=== PATIENT | male | born 1955 | race Caucasian/White ===

== ENCOUNTER 2019-11-30 05:33 | Day surgery (SDC) | payer MEDICAID ==
[2019-11-26 11:00] VITALS: BMI 28.6
[~2019-11-30 05:33] MED LIST: HEPARIN SODIUM,PORCINE 5,000 UNIT/ML 1 ML VIAL SQ ONE
[2019-11-30] MEDS ORDERED: HYDROmorphone 0.5 MG/0.5 ML SYRINGE IVP PRN (05:46)
[2019-11-30] MEDS ORDERED: LIDOCAINE 1% 20 ML VIAL (10MG/ML) FOR IV START INTRADERMA PRN (05:46)
[2019-11-30] MEDS ORDERED: SCOPOLAMINE 1.5MG/72HR PATCH TRANSDERM ONE (05:46)
[2019-11-30] MEDS ORDERED: DEXAMETHASONE SOD PHOSPHATE 10 MG/ML 1 ML VIAL IV ONE (05:46)
[2019-11-30] MEDS ORDERED: ONDANSETRON 4 MG/2 ML VIAL IVP ONE (05:46)
[2019-11-30] MEDS: LACTATED RINGERS 1,000 ML IV SCH (06:22)
[2019-11-30] MEDS ORDERED: MIDAZOLAM 2 MG/2 ML VIAL IV ONE ×2 (07:22)
[2019-11-30] MEDS ORDERED: fentaNYL (PF) 50 MCG/ML 2 ML AMP IV ONE ×2 (07:35)
[2019-11-30] MEDS ORDERED: ROCURONIUM BROMIDE 10 MG/ML 5 ML VIAL IV ONE (07:49)
[2019-11-30] MEDS ORDERED: ROPIVACAINE 5 MG/ML 30 ML VIAL ONE (07:49)
[2019-11-30] MEDS ORDERED: DEXAMETHASONE SOD PHOSPHATE 4 MG/ML 1 ML VIAL ONE (07:49)
[2019-11-30] MEDS ORDERED: fentaNYL (PF) 50 MCG/ML 2 ML AMP ONE (07:49)
[2019-11-30] MEDS ORDERED: GLYCOPYRROLATE 0.2 MG/ML 2 ML VIAL ONE (07:49)
[2019-11-30] MEDS ORDERED: LIDOCAINE 1% INJ 10MG/ML (20 ML MDV) ONE (07:49)
[2019-11-30] MEDS ORDERED: LABETALOL 5 MG/ML VIAL MDV ONE (07:49)
[2019-11-30] MEDS ORDERED: NEOSTIGMINE 1 MG/ML 10 ML VIAL ONE (07:49)
[2019-11-30] MEDS ORDERED: PROPOFOL 10 MG/ML 20 ML VIAL IV ONE (07:49)
[2019-11-30] MEDS ORDERED: TAMSULOSIN 0.4 MG CAP.ER.24H PO ONE (07:53)
[2019-11-30] MEDS ORDERED: BUPIVACAINE (PF) 0.5% 30 ML VIAL SQ ONE ×2 (07:56→08:22)
--- NOTE | 2019-11-30 08:13 | P.GSHP ---
History of Present Illness H&P Date: 11/30/19 Chief Complaint: Right inguinal hernia This a 62-year-old male who presents today for laparoscopic robotic-assisted repair of right inguinal hernia Past Medical History Past Medical History: Prostate Disorder Additional Past Medical History / Comment(s): SEASONAL/ENVIRONMENTAL ALLERGIES. POSSIBLE GLAUCOMA. ED. KIDNEY STONES. HERNIA History of Any Multi-Drug Resistant Organisms: None Reported Past Surgical History: Hernia Repair Additional Past Surgical History / Comment(s): VARICOCELE LT TESTICLE. VASECTOMY. ORAL SX-18 TEETH REMOVED. HEMORRHOIDECTOMY. SIGMOIDOSCOPY Past Anesthesia/Blood Transfusion Reactions: No Reported Reaction Smoking Status: Former smoker - Past Family History Mother Family Medical History: No Reported History Medications and Allergies Home Medications Medication Instructions Recorded Confirmed Type Docusate [Colace] 100 mg PO BID 11/26/19 11/30/19 History Loratadine [Claritin] 10 mg PO DAILY 11/26/19 11/30/19 History Tamsulosin [Flomax] 0.4 mg PO DAILY 11/26/19 11/30/19 History Allergies Allergy/AdvReac Type Severity Reaction Status Date / Time amoxicillin Allergy N/V/D Verified 11/30/19 06:13 ITCHING, ABD. PAIN ampicillin Allergy N/V/D Verified 11/30/19 06:13 ITCHING, ABD. PAIN Penicillins Allergy N/V/D Verified 11/30/19 06:13 ITCHING, ABD. PAIN Yeast Allergy SINUS Verified 11/30/19 06:13 PROBLEMS MOLD, DUST, CUT GRASS Allergy SINUS Uncoded 11/30/19 06:13 PROBLEMS Surgical - Exam Vital Signs Temp Pulse Resp BP Pulse Ox 97.6 F 61 16 136/95 96 11/30/19 06:21 11/30/19 06:21 11/30/19 06:21 11/30/19 06:21 11/30/19 06:21 - General well developed, well nourished, no distress - Eyes PERRL - ENT normal pinna - Neck no masses - Respiratory normal expansion - Cardiovascular Rhythm: regular - Abdomen Abdomen: soft, non tender Hernia: inguinal (Right inguinal hernia) Assessment and Plan Assessment: Radial hernia. We'll perform laparoscopic robotic system repair.
[2019-11-30 09:05] VITALS: TEMP 96.8
--- NOTE | 2019-11-30 09:29 | P.OP ---
Date of Procedure: 11/30/19 Preoperative Diagnosis: Right inguinal hernia Postoperative Diagnosis: Right inguinal hernia Procedure(s) Performed: Laparoscopic robotic-assisted repair of right inguinal hernia Anesthesia: ARA Surgeon: Ricky Dallas Estimated Blood Loss (ml): 5 Pathology: none sent Condition: stable Disposition: PACU Description of Procedure: The patient's placed on the operating table in the supine position. The patient received general anesthesia. The patient's abdomen was prepped and draped in usual sterile fashion. The skin was anesthetized 1% local Xylocaine at the incision sites. Using an 11 blade a skin incision was made at the umbilicus. The fascia was grasped with a Antwan and then the peritoneal cavity was entered with the Veress needle. Position of the Veress needle was confirmed with a positive drop test. After adequate insufflation a 5 mm trocar was placed into the peritoneal cavity. The Laparoscope was placed the peritoneal cavity. And a robotic 8 mm trocar was placed in the right lateral position and then another 8 mm robotic trochars placed in the left lateral position. The original 5 mm trocar was exchanged for a 12 mm trocar. The patient was placed in reverse Trendelenburg and then the patient was docked to the robot. Next the peritoneum over top of the hernia was incised and then using blunt and sharp dissection and electrocautery the hernia sac was dissected free from the floor of the inguinal canal. The hernia sac was completely reduced into the peritoneal cavity. And then using the Pro career discovery teacher mesh the hernia was repaired. The peritoneum was then sutured with 20V lock suture. The patient was then undocked the robot. The needle was withdrawn from the peritoneal cavity. The umbilical trocar site was closed with 0 Ethibond suture. The skin was closed interrupted 3-0 Monocryl suture. Dermabond dressing was applied. Patient was sent to recovery in stable condition.
[2019-11-30 09:43] VITALS: RESP 16
[2019-11-30 10:10] VITALS: BP 165/92; PULSE 71
--- NOTE | 2019-11-30 10:51 | P.ANPRN ---
Procedure Note - Anesthesia - Nerve Block Performed Bilateral Transversus Abdominis Single Time Out Performed: Yes Date of Procedure: 11/30/19 Procedure Start Time: : Procedure Stop Time: : Location of Patient: PreOp Indication: Acute Post-Operative Pain, Requested by Surgeon Sedation Type: Sedate with meaningful contact maintained Preparation: Sterile Prep Position: Supine Catheter: None Needle Types: Pajunk Needle Gauge: 21 Ultrasound used to visualize needle placement: Yes Ultrasound used to observe medication spread: Yes Injectate: 0.5% Ropivacaine (see comment for volume) (ROPIVACAINE 0.5% 20 CC + DECADRON 4MG-- PER SIDE) Blood Aspirated: No Pain Paresthesia on Injection Noted: No Resistance on Injection: Normal Image Stored and Saved: Yes Events: Uneventful and Well Tolerated
== END 2019-11-30 10:47 | disposition home or self-care (01) ==
LOC: OR 05:33
PROVIDERS: ATTEND Surgery
DX: K40.90 Unilateral inguinal hernia, without obstruction or gangrene, not specified as recurrent (principal); N42.9 Disorder of prostate, unspecified; N52.9 Male erectile dysfunction, unspecified; Z79.899 Other long term (current) drug therapy; Z88.0 Allergy status to penicillin; Z88.8 Allergy status to other drugs, medicaments and biological substances; Z91.018 Allergy to other foods; Z87.442 Personal history of urinary calculi; Z98.890 Other specified postprocedural states; Z98.52 Vasectomy status; Z87.891 Personal history of nicotine dependence
CPT/HCPCS: 64488; 49650; C1781; J2250; J1644; J1100 ×2; J2710; J0690; J2405; J2001; J3010; J2795; J2704

== ENCOUNTER 2022-05-27 17:01 | Emergency (ER) | payer BC, MEDICAID ==
[2022-05-27 17:20] VITALS: BP 144/94; PULSE 99; RESP 18; TEMP 98.1
[2022-05-27 17:20] LABS: Glucose,Whole Blood 376 mg/dL (70-110)
[2022-05-27 19:55] LABS: Glucose,Whole Blood 292 mg/dL (70-110)
[2022-05-27 20:18] LABS: Basophils # (A) 0.1 k/uL (0-0.2); Basophils % (A) 1 %; Eosinophils # (A) 0.1 k/uL (0-0.7); Eosinophils % (A) 1 %; HCT 46.8 % (39.0-53.0); HGB 16.1 gm/dL (13.0-17.5); Lymphocytes # (A) 2.8 k/uL (1.0-4.8); Lymphocytes % (A) 38 %; MCH 30.8 pg (25.0-35.0); MCHC 34.3 g/dL (31.0-37.0); MCV 89.7 fL (80.0-100.0); Monocytes # (A) 0.3 k/uL (0-1.0); Monocytes % (A) 4 %; Neutrophils # (A) 4.1 k/uL (1.3-7.7); Neutrophils % (A) 55 %; Platelet Count 181 k/uL (150-450); RBC 5.22 m/uL (4.30-5.90); RDW 13.9 % (11.5-15.5); WBC 7.4 k/uL (3.8-10.6)
[2022-05-27 20:30] LABS: ALT 54 U/L (4-49); AST 44 U/L (17-59); African American GFR (CKD) 70 (>60 ml/min/1.73 sqM); Albumin 4.1 g/dL (3.5-5.0); Alkaline Phosphatase 85 U/L (38-126); Anion Gap 8 mmol/L; Blood Urea Nitrogen 22 mg/dL (9-20); Calcium 9.6 mg/dL (8.4-10.2); Carbon Dioxide 27 mmol/L (22-30); Chloride 100 mmol/L (98-107); Glucose 301 mg/dL (74-99); Magnesium 1.9 mg/dL (1.6-2.3); Non-African American GFR(CKD) 61 (>60 ml/min/1.73 sqM); Phosphorus 4.2 mg/dL (2.5-4.5); Potassium 4.5 mmol/L (3.5-5.1); Sodium 135 mmol/L (137-145); Total Bilirubin 0.7 mg/dL (0.2-1.3); Total Protein 7.5 g/dL (6.3-8.2)
[2022-05-27] MEDS ORDERED: INSULIN REGULAR 100 UNIT/ML VIAL (IV) IV ONE (20:30)
[2022-05-27] MEDS ORDERED: SODIUM CHLORIDE 0.9% 1,000 ML IV STA (20:30)
--- NOTE | 2022-05-27 20:49 | ED ---
Recheck HPI - General Chief Complaint: Recheck/Abnormal Lab/Rx Stated Complaint: hyperglycemia Time Seen by Provider: 05/27/22 18:29 Source: patient, RN notes reviewed Mode of arrival: ambulatory Limitations: no limitations - History of Present Illness Initial Comments: This is a 66-year-old male who presents to the emergency department for elevated blood sugar. Patient states that he was diagnosed with diabetes today and started on metformin. He was referred to urology for polyuria, and had his first appointment today. He was diagnosed with the diabetes at the urologist's office with a blood sugar of over 350 and sugar in the urine. Patient states that when he went to order picker his medication, his sugar was over 400. His became concerned, and instructed him to come to the emergency department. Patient currently denies any chest pain, shortness of breath, nausea, vomiting, or feeling generally unwell. Denies any fevers, chills, sore throat, cough, dyspnea, chest pain, palpitations, abdominal pain, nausea, vomiting, diarrhea, back pain, or headaches. MD Complaint: other (Elevated blood sugar) - Related Data Home Medications Medication Instructions Recorded Confirmed Loratadine [Claritin] 10 mg PO DAILY 11/26/19 05/27/22 Super Beta Prostate 3 cap PO DAILY 05/27/22 05/27/22 metFORMIN HCL 500 mg PO DAILY 05/27/22 05/27/22 tadalafiL 5 mg PO DIRECTED 05/27/22 05/27/22 Allergies Allergy/AdvReac Type Severity Reaction Status Date / Time amoxicillin Allergy N/V/D Verified 05/27/22 21:57 ITCHING, ABD. PAIN ampicillin Allergy N/V/D Verified 05/27/22 21:57 ITCHING, ABD. PAIN Penicillins Allergy N/V/D Verified 05/27/22 21:57 ITCHING, ABD. PAIN Yeast Allergy SINUS Verified 05/27/22 21:57 PROBLEMS MOLD, DUST, CUT GRASS Allergy SINUS Uncoded 11/30/19 06:13 PROBLEMS Review of Systems ROS Statement: Those systems with pertinent positive or pertinent negative responses have been documented in the HPI. ROS Other: All systems not noted in ROS Statement are negative. Past Medical History Past Medical History: Diabetes Mellitus, Prostate Disorder Additional Past Medical History / Comment(s): SEASONAL/ENVIRONMENTAL ALLERGIES. POSSIBLE GLAUCOMA. ED. KIDNEY STONES. HERNIA History of Any Multi-Drug Resistant Organisms: None Reported Past Surgical History: Hernia Repair Additional Past Surgical History / Comment(s): VARICOCELE LT TESTICLE. VASECTOMY. ORAL SX-18 TEETH REMOVED. HEMORRHOIDECTOMY. SIGMOIDOSCOPY Past Anesthesia/Blood Transfusion Reactions: No Reported Reaction Past Psychological History: No Psychological Hx Reported Past Alcohol Use History: None Reported Past Drug Use History: None Reported - Past Family History Mother Family Medical History: No Reported History General Exam Limitations: no limitations General appearance: alert, in no apparent distress Head exam: Present: atraumatic, normocephalic, normal inspection Respiratory exam: Present: normal lung sounds bilaterally. Absent: respiratory distress, wheezes, rales, rhonchi, stridor Cardiovascular Exam: Present: regular rate, normal rhythm, normal heart sounds. Absent: systolic murmur, diastolic murmur, rubs, gallop, clicks Neurological exam: Present: alert, oriented X3, CN II-XII intact Psychiatric exam: Present: normal affect, normal mood Skin exam: Present: warm, dry, intact, normal color. Absent: rash Course Vital Signs 05/27/22 17:11 Temperature 98.1 F Pulse Rate 99 Respiratory 18 Rate Blood Pressure 144/94 O2 Sat by Pulse 96 Oximetry Medical Decision Making - Medical Decision Making This is a 66-year-old male who presents to the emergency department for elevated blood sugar. Lab work reveals no signs of DKA. Patient started on IV fluids and given 5 units of insulin. Advised the patient that it will take time for his sugar to improve with the medication. He should continue taking the metformin as prescribed and discuss diabetic education classes with his primary care provider. I did provide the patient with contact information for diabetic education classes at [facility], however he will need a referral from his primary care provider. We discussed dietary changes and the need for lifestyle improvements. Patient expresses understanding. He does have a glucometer at home which he will continue to use. Return precautions reviewed in depth, the patient is instructed to return to the emergency department with any new, worsening, or concerning symptoms. Patient verbalized understanding. This case was discussed in detail with the attending ED physician. Presentation, findings, and treatment plan discussed in detail as well. - Lab Data Result diagrams: 05/27/22 20:05 05/27/22 20:05 Lab Results 05/27/22 05/27/22 05/27/22 Range/Units 17:19 19:52 20:05 WBC 7.4 (3.8-10.6) k/uL RBC 5.22 (4.30-5.90) m/uL Hgb 16.1 (13.0-17.5) gm/dL Hct 46.8 (39.0-53.0) % MCV 89.7 (80.0-100.0) fL MCH 30.8 (25.0-35.0) pg MCHC 34.3 (31.0-37.0) g/dL RDW 13.9 (11.5-15.5) % Plt Count 181 (150-450) k/uL MPV 8.0 Neutrophils % 55 % Lymphocytes % 38 % Monocytes % 4 % Eosinophils % 1 % Basophils % 1 % Neutrophils # 4.1 (1.3-7.7) k/uL Lymphocytes # 2.8 (1.0-4.8) k/uL Monocytes # 0.3 (0-1.0) k/uL Eosinophils # 0.1 (0-0.7) k/uL Basophils # 0.1 (0-0.2) k/uL Sodium (137-145) mmol/L Potassium (3.5-5.1) mmol/L Chloride (98-107) mmol/L Carbon Dioxide (22-30) mmol/L Anion Gap mmol/L BUN (9-20) mg/dL Creatinine (0.66-1.25) mg/dL Est GFR (CKD-EPI)AfAm (>60 ml/min/1.73 sqM) Est GFR (CKD-EPI)NonAf (>60 ml/min/1.73 sqM) Glucose (74-99) mg/dL POC Glucose (mg/dL) 376 H 292 H (70-110) mg/dL POC Glu Shredding Machine Knife Changer ID Jayne Cline Heather Calcium (8.4-10.2) mg/dL Phosphorus (2.5-4.5) mg/dL Magnesium (1.6-2.3) mg/dL Total Bilirubin (0.2-1.3) mg/dL AST (17-59) U/L ALT (4-49) U/L Alkaline Phosphatase (38-126) U/L Total Protein (6.3-8.2) g/dL Albumin (3.5-5.0) g/dL Urine Color Urine Appearance (Clear) Urine pH (5.0-8.0) Ur Specific Peterson (1.001-1.035) Urine Protein (Negative) Urine Glucose (UA) (Negative) Urine Ketones (Negative) Urine Blood (Negative) Urine Nitrite (Negative) Urine Bilirubin (Negative) Urine Urobilinogen (<2.0) mg/dL Ur Leukocyte Esterase (Negative) Acetone, Qual (Negative) 05/27/22 05/27/22 05/27/22 Range/Units 20:05 21:25 23:14 WBC (3.8-10.6) k/uL RBC (4.30-5.90) m/uL Hgb (13.0-17.5) gm/dL Hct (39.0-53.0) % MCV (80.0-100.0) fL MCH (25.0-35.0) pg MCHC (31.0-37.0) g/dL RDW (11.5-15.5) % Plt Count (150-450) k/uL MPV Neutrophils % % Lymphocytes % % Monocytes % % Eosinophils % % Basophils % % Neutrophils # (1.3-7.7) k/uL Lymphocytes # (1.0-4.8) k/uL Monocytes # (0-1.0) k/uL Eosinophils # (0-0.7) k/uL Basophils # (0-0.2) k/uL Sodium 135 L (137-145) mmol/L Potassium 4.5 (3.5-5.1) mmol/L Chloride 100 (98-107) mmol/L Carbon Dioxide 27 (22-30) mmol/L Anion Gap 8 mmol/L BUN 22 H (9-20) mg/dL Creatinine 1.25 (0.66-1.25) mg/dL Est GFR (CKD-EPI)AfAm 70 (>60 ml/min/1.73 sqM) Est GFR (CKD-EPI)NonAf 61 (>60 ml/min/1.73 sqM) Glucose 301 H (74-99) mg/dL POC Glucose (mg/dL) 223 H (70-110) mg/dL POC Glu Shredding Machine Knife Changer ID Sariah, Khloe Calcium 9.6 (8.4-10.2) mg/dL Phosphorus 4.2 (2.5-4.5) mg/dL Magnesium 1.9 (1.6-2.3) mg/dL Total Bilirubin 0.7 (0.2-1.3) mg/dL AST 44 (17-59) U/L ALT 54 H (4-49) U/L Alkaline Phosphatase 85 (38-126) U/L Total Protein 7.5 (6.3-8.2) g/dL Albumin 4.1 (3.5-5.0) g/dL Urine Color Light Yellow Urine Appearance Clear (Clear) Urine pH 5.0 (5.0-8.0) Ur Specific Peterson 1.030 (1.001-1.035) Urine Protein Negative (Negative) Urine Glucose (UA) 4+ H (Negative) Urine Ketones 1+ H (Negative) Urine Blood Negative (Negative) Urine Nitrite Negative (Negative) Urine Bilirubin Negative (Negative) Urine Urobilinogen <2.0 (<2.0) mg/dL Ur Leukocyte Esterase Negative (Negative) Acetone, Qual Negative (Negative) Disposition Clinical Impression: Hyperglycemia due to type 2 diabetes mellitus Disposition: HOME SELF-CARE Instructions (If sedation given, give patient instructions): Type 2 Diabetes in Adults: New Diagnosis (DC), Type 2 Diabetes Management for Adults (ED) Additional Instructions: Return to the emergency department with any new, worsening, or concerning symptoms. Continue taking your Metformin as prescribed. Follow up with your primary care provider in 1-2 days. Is patient prescribed a controlled substance at d/c from ED?: No Referrals: Jenna Lombardo MD [Primary Care Provider] - 1-2 days
[2022-05-27 21:59] LABS: Appearance,Urine Clear (Clear); Bilirubin,Urine Negative (Negative); Blood,Urine Negative (Negative); Color,Urine Light Yellow; Glucose,Urine (UA) 4+ (Negative); Ketones,Urine 1+ (Negative); Leukocyte Esterase,Urine Negative (Negative); Nitrite,Urine Negative (Negative); Protein,Urine Negative (Negative); Urobilinogen,Urine <2.0 mg/dL (<2.0)
[2022-05-27 23:16] LABS: Glucose,Whole Blood 223 mg/dL (70-110)
== END 2022-05-27 22:59 | disposition home or self-care (01) ==
LOC: EC 17:01
DX: E11.65 Type 2 diabetes mellitus with hyperglycemia (principal); Z79.4 Long term (current) use of insulin; Z88.0 Allergy status to penicillin; Z91.018 Allergy to other foods; Z91.048 Other nonmedicinal substance allergy status
CPT/HCPCS: 36415; 80053; 81003; 82009; 83735; 84100; 85025; 99284

== ENCOUNTER 2022-08-27 10:35 | Emergency (ER) | payer BC ==
[2022-08-27 10:50] VITALS: RESP 18; TEMP 98.3
[2022-08-27] MEDS ORDERED: SODIUM CHLORIDE 0.9% 500 ML 500 ML IV STA (10:58)
[2022-08-27 11:11] LABS: Glucose,Whole Blood 170 mg/dL (70-110)
[2022-08-27 11:28] LABS: Lactic Acid, Venous 1.3 mmol/L (0.7-2.0); Partial Thromboplastin Time 22.8 sec (22.0-30.0); Prothrombin Time 11.1 sec (9.0-12.0)
[2022-08-27 11:29] LABS: Albumin 4.3 g/dL (3.5-5.0); Calcium 8.5 mg/dL (8.4-10.2); Potassium 4.2 mmol/L (3.5-5.1); Total Bilirubin 1.2 mg/dL (0.2-1.3); Total Protein 7.4 g/dL (6.3-8.2)
[2022-08-27 11:33] LABS: Basophils # (A) 0.1 k/uL (0-0.2); Basophils % (A) 1 %; Eosinophils % (A) 0 %; HCT 44.2 % (39.0-53.0); HGB 16.5 gm/dL (13.0-17.5); Lymphocytes # (A) 1.7 k/uL (1.0-4.8); Lymphocytes % (A) 33 %; MCHC 37.4 g/dL (31.0-37.0); MCV 85.5 fL (80.0-100.0); Mean Platelet Volume 8.5; Monocytes # (A) 0.5 k/uL (0-1.0); Monocytes % (A) 10 %; Neutrophils # (A) 2.8 k/uL (1.3-7.7); Neutrophils % (A) 54 %; Platelet Count 139 k/uL (150-450); RBC 5.17 m/uL (4.30-5.90); RDW 13.4 % (11.5-15.5); WBC 5.2 k/uL (3.8-10.6)
--- NOTE | 2022-08-27 12:38 | ED ---
General Adult HPI - General Chief complaint: Altered Mental Status Stated complaint: AMS Time Seen by Provider: 08/27/22 10:41 Source: EMS, RN notes reviewed, old records reviewed Mode of arrival: EMS - History of Present Illness Initial comments: Patient is a 66-year-old male who presents from the urologist's office for evaluation for weakness, altered mental status. Was brought in by EMS after he nearly collapsed at the urologist's office. Since the weekend, patient has been more weak than normal per patient's who is at bedside. He is requiring extra help with his normal ADLs. He also noticed that he seems to be having increased confusion, increased left-sided facial droop, as well as speaking confused words. He is unable to provide much of a history. He can't follow some commands. He seems to have generalized weakness. Patient's states that normally he is a note 4 and does not require any 8. She has noticed a decline since Friday. Believes that she knows some facial drooping over the weekend as well as the generalized weakness, possible left worse than right. States he intermittently is confused but also make sense. Has no other acute complaints at this time. No other further history from patient's . Overall poor historian. Last known well seems to have been maybe Friday prior to the weekend. It is currently Friday. No history of strokes. Not on blood thinners. No known falls. - Related Data Home Medications Medication Instructions Recorded Confirmed Loratadine [Claritin] 10 mg PO DAILY 11/26/19 05/27/22 Super Beta Prostate 3 cap PO DAILY 05/27/22 05/27/22 metFORMIN HCL 500 mg PO DAILY 05/27/22 05/27/22 tadalafiL 5 mg PO DIRECTED 05/27/22 05/27/22 Allergies Allergy/AdvReac Type Severity Reaction Status Date / Time amoxicillin Allergy N/V/D Verified 05/27/22 21:57 ITCHING, ABD. PAIN ampicillin Allergy N/V/D Verified 05/27/22 21:57 ITCHING, ABD. PAIN Penicillins Allergy N/V/D Verified 05/27/22 21:57 ITCHING, ABD. PAIN Yeast Allergy SINUS Verified 05/27/22 21:57 PROBLEMS MOLD, DUST, CUT GRASS Allergy SINUS Uncoded 11/30/19 06:13 PROBLEMS Review of Systems ROS Statement: Those systems with pertinent positive or pertinent negative responses have been documented in the HPI. ROS Other: All systems not noted in ROS Statement are negative. Past Medical History Past Medical History: Diabetes Mellitus, Prostate Disorder Additional Past Medical History / Comment(s): SEASONAL/ENVIRONMENTAL ALLERGIES. POSSIBLE GLAUCOMA. ED. KIDNEY STONES. HERNIA History of Any Multi-Drug Resistant Organisms: None Reported Past Surgical History: Hernia Repair Additional Past Surgical History / Comment(s): VARICOCELE LT TESTICLE. VASECTOMY. ORAL SX-18 TEETH REMOVED. HEMORRHOIDECTOMY. SIGMOIDOSCOPY Past Anesthesia/Blood Transfusion Reactions: No Reported Reaction Past Psychological History: No Psychological Hx Reported Smoking Status: Former smoker Past Alcohol Use History: Unable to Obtain Past Drug Use History: Unable to Obtain - Past Family History Mother Family Medical History: Diabetes Mellitus Father Family Medical History: Diabetes Mellitus General Exam - General Exam Comments Initial Comments: General: Appears in no acute distress. HEAD: Normal with no signs of head trauma. EYES: PERRLA, EOMI, conjunctiva normal, no discharge. Pupils are 3 mm equal bi laterally. ENT: Hearing grossly intact, normal oropharynx. Patient does have left-sided facial droop. RESPIRATORY: Clear breath sounds bilaterally. No wheezes, rales, or rhonchi. C/V: Regular rate and rhythm. S1 and S2 auscultated, no edema, peripheral pulses 2+ and intact throughout ABD: Abd is soft, nontender, nondistended EXT: Normal range of motion, no obvious deformity SKIN: No rashes or lesions observed on exposed skin. NEURO: Alert and oriented times one. NIH of 6 a few exclude generalized extremity weakness. Difficult to ascertain if he has worsening left or right- sided weakness as he appears weak all over. Patient gets 2 points for lower face facial palsy, 2 points for questions right for month and age, and 2 points for aphasia. GCS of 15. Course Vital Signs 08/27/22 08/27/22 08/27/22 10:45 11:50 13:44 Temperature 98.3 F Pulse Rate 83 83 77 Respiratory 18 18 18 Rate Blood Pressure 116/73 116/73 117/75 O2 Sat by Pulse 97 95 99 Oximetry Medical Decision Making - Medical Decision Making Based on the patient's presentation and physical exam, he appears to be having generalized weakness since Friday with other neurological deficits per patient's who is at bedside and corroborates this. Therefore last known well will be Friday or Friday. Has strokelike symptoms including facial droop, aphasia, confusion. Cannot rule out infectious etiology at this time. Does have a history of diabetes, but blood sugars within normal limits. His last known well was multiple days ago, Covid stroke was not activated. Patient is not a TPA candidate as benefits are far outweighed by the risks involved. Patient's expressed understanding of this. We will obtain a broad workup. This included CT imaging the brain. They were in agreement this plan. Patient will be given IV fluids at this time. Vital signs are within acceptable limits. EKG shows no signs of acute ischemia.Chest x-ray shows a middle left upper lobe infiltrate. Possible pneumonia. Patient does have COVID-19 infection but this does not align with atypical Covid pattern and chest x-ray. Laboratory studies are remarkable for mild AK eye with a creatinine of 1.31. This is only slightly above baseline. Troponin is undetectable. Urinalysis is still pending at this time. Covid is positive. CT brain showed no acute intracranial process. I was contacted by radiology regarding the CT angiogram of the brain. 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 There is collateral circulation from the left side. Likely secondary to retrograde flow. Patient was started on empiric antibiotics for pneumonia with azithromycin as well as Rocephin. I did update the patient as well as his of these findings. I will contact the stroke neuro whip sawyer on-call Dr. Hylton. He reviewed the imaging and requested the patient be transferred to [facility] for possible reperfusion. Recommended the patient be start on aspirin, Brilinta. Patiently low at 325mg aspirin as well as 180 mg of Brilinta. Patient be transferred to [facility]. Patient's was in agreement with this plan. Patient's neurological status remains unchanged, but does wax and wane from an NIH of 2-6. Patient is moving all 4 extremities at this time. I contacted [facility] and they accepted the transfer. Accepting physician is Dr. Carter. Patient will be transferred in serious condition. - Lab Data Result diagrams: 08/27/22 11:04 08/27/22 11:04 Lab Results 08/27/22 08/27/22 08/27/22 Range/Units 11:04 11:04 11:04 WBC 5.2 (3.8-10.6) k/uL RBC 5.17 (4.30-5.90) m/uL Hgb 16.5 (13.0-17.5) gm/dL Hct 44.2 (39.0-53.0) % MCV 85.5 (80.0-100.0) fL MCH 32.0 (25.0-35.0) pg MCHC 37.4 H (31.0-37.0) g/dL RDW 13.4 (11.5-15.5) % Plt Count 139 L (150-450) k/uL MPV 8.5 Neutrophils % 54 % Lymphocytes % 33 % Monocytes % 10 % Eosinophils % 0 % Basophils % 1 % Neutrophils # 2.8 (1.3-7.7) k/uL Lymphocytes # 1.7 (1.0-4.8) k/uL Monocytes # 0.5 (0-1.0) k/uL Eosinophils # 0.0 (0-0.7) k/uL Basophils # 0.1 (0-0.2) k/uL PT 11.1 (9.0-12.0) sec INR 1.0 (<1.2) APTT 22.8 (22.0-30.0) sec Sodium 132 L (137-145) mmol/L Potassium 4.2 (3.5-5.1) mmol/L Chloride 100 (98-107) mmol/L Carbon Dioxide 23 (22-30) mmol/L Anion Gap 9 mmol/L BUN 20 (9-20) mg/dL Creatinine 1.31 H (0.66-1.25) mg/dL Est GFR (CKD-EPI)AfAm 66 (>60 ml/min/1.73 sqM) Est GFR (CKD-EPI)NonAf 57 (>60 ml/min/1.73 sqM) Glucose 155 H (74-99) mg/dL POC Glucose (mg/dL) (70-110) mg/dL POC Glu Sander Hand ID Plasma Lactic Acid Heath (0.7-2.0) mmol/L Calcium 8.5 (8.4-10.2) mg/dL Total Bilirubin 1.2 (0.2-1.3) mg/dL AST 59 (17-59) U/L ALT 52 H (4-49) U/L Alkaline Phosphatase 53 (38-126) U/L Ammonia (<30) umol/L Troponin I (0.000-0.034) ng/mL Total Protein 7.4 (6.3-8.2) g/dL Albumin 4.3 (3.5-5.0) g/dL Coronavirus (PCR) (Not Detectd) 08/27/22 08/27/22 08/27/22 Range/Units 11:04 11:04 11:04 WBC (3.8-10.6) k/uL RBC (4.30-5.90) m/uL Hgb (13.0-17.5) gm/dL Hct (39.0-53.0) % MCV (80.0-100.0) fL MCH (25.0-35.0) pg MCHC (31.0-37.0) g/dL RDW (11.5-15.5) % Plt Count (150-450) k/uL MPV Neutrophils % % Lymphocytes % % Monocytes % % Eosinophils % % Basophils % % Neutrophils # (1.3-7.7) k/uL Lymphocytes # (1.0-4.8) k/uL Monocytes # (0-1.0) k/uL Eosinophils # (0-0.7) k/uL Basophils # (0-0.2) k/uL PT (9.0-12.0) sec INR (<1.2) APTT (22.0-30.0) sec Sodium (137-145) mmol/L Potassium (3.5-5.1) mmol/L Chloride (98-107) mmol/L Carbon Dioxide (22-30) mmol/L Anion Gap mmol/L BUN (9-20) mg/dL Creatinine (0.66-1.25) mg/dL Est GFR (CKD-EPI)AfAm (>60 ml/min/1.73 sqM) Est GFR (CKD-EPI)NonAf (>60 ml/min/1.73 sqM) Glucose (74-99) mg/dL POC Glucose (mg/dL) (70-110) mg/dL POC Glu Sander Hand ID Plasma Lactic Acid Heath 1.3 (0.7-2.0) mmol/L Calcium (8.4-10.2) mg/dL Total Bilirubin (0.2-1.3) mg/dL AST (17-59) U/L ALT (4-49) U/L Alkaline Phosphatase (38-126) U/L Ammonia <9 (<30) umol/L Troponin I <0.012 (0.000-0.034) ng/mL Total Protein (6.3-8.2) g/dL Albumin (3.5-5.0) g/dL Coronavirus (PCR) Detected A (Not Detectd) 08/27/22 Range/Units 11:09 WBC (3.8-10.6) k/uL RBC (4.30-5.90) m/uL Hgb (13.0-17.5) gm/dL Hct (39.0-53.0) % MCV (80.0-100.0) fL MCH (25.0-35.0) pg MCHC (31.0-37.0) g/dL RDW (11.5-15.5) % Plt Count (150-450) k/uL MPV Neutrophils % % Lymphocytes % % Monocytes % % Eosinophils % % Basophils % % Neutrophils # (1.3-7.7) k/uL Lymphocytes # (1.0-4.8) k/uL Monocytes # (0-1.0) k/uL Eosinophils # (0-0.7) k/uL Basophils # (0-0.2) k/uL PT (9.0-12.0) sec INR (<1.2) APTT (22.0-30.0) sec Sodium (137-145) mmol/L Potassium (3.5-5.1) mmol/L Chloride (98-107) mmol/L Carbon Dioxide (22-30) mmol/L Anion Gap mmol/L BUN (9-20) mg/dL Creatinine (0.66-1.25) mg/dL Est GFR (CKD-EPI)AfAm (>60 ml/min/1.73 sqM) Est GFR (CKD-EPI)NonAf (>60 ml/min/1.73 sqM) Glucose (74-99) mg/dL POC Glucose (mg/dL) 170 H (70-110) mg/dL POC Glu Sander Hand Shlomo Rivera Plasma Lactic Acid Heath (0.7-2.0) mmol/L Calcium (8.4-10.2) mg/dL Total Bilirubin (0.2-1.3) mg/dL AST (17-59) U/L ALT (4-49) U/L Alkaline Phosphatase (38-126) U/L Ammonia (<30) umol/L Troponin I (0.000-0.034) ng/mL Total Protein (6.3-8.2) g/dL Albumin (3.5-5.0) g/dL Coronavirus (PCR) (Not Detectd) - EKG Data -: EKG Interpreted by Me EKG Comments: 12-lead Electrocardiogram Interpretation Note EKG was reviewed and interpreted by myself. 12-lead ECG performed at 1055 is interpreted by me as revealing normal sinus rhythm at a rate of 89 beats per minute. Orange appears normal. NV interval is 157 ms, QRS ration is 108 ms, QTc is 389 ms. She has a chronic T wave inversion in lead III which is seen on prior EKG from November 2019.. There were no acute ST or T wave abnormalities to suggest myocardial ischemia or injury. R wave progression across the precordium was satisfactory. By my interpretation this EKG is non-diagnostic for acute ischemia. No significant changes when compared with EKG from November 2019. Critical Care Time Critical Care Time: Yes Total Critical Care Time: 35 Critical Care Time: Upon my evaluation, this patient had a high probability of imminent or life-threatening deterioration due to right ICA occlusion, COVID-19, pneumonia, which required my direct attention, intervention, and personal management. I have personally provided 35 minutes of critical care time exclusive of time spent on separately billable procedures. Time includes review of laboratory data, radiology results, discussion with consultants, and monitoring for potential decompensation. Interventions were performed as documented in my note. Disposition Clinical Impression: Pneumonia, Right internal carotid occlusion, COVID-19 virus infection, Confusion Disposition: OTHER INSTITUTION NOT DEFINED Condition: Serious Referrals: Jenna Lombardo MD [Primary Care Provider] - 1-2 days Time of Disposition: 13:25 - Out of Hospital Transfer - Req. Specs Out of Hospital Transfer - Requested Specifics: Other Emergency Center (Transfer to [facility] per neurointerventionalist request due to right ICA occlusion.)
--- NOTE | 2022-08-27 12:42 | CT ---
EXAMINATION TYPE: CT brain wo con CT DLP: 1096.8 mGycm, Automated exposure control for dose reduction was used. DATE OF EXAM: 08/27/2022 12:27 PM COMPARISON: . CLINICAL INDICATION:Male, 66 years old with history of Altered mental status, ams TECHNIQUE: Brain: Axial CT images of the brain were obtained with coronal and sagittal reformats created and rev iewed. Contrast used: None. Oral contrast used: None. FINDINGS: Brain: Extra-axial spaces: No abnormal extra-axial fluid collections. Ventricular system: Dilatation in proportion to cerebral atrophy. Cerebral parenchyma: Cerebral atrophy. No acute intraparenchymal hemorrhage or mass effect. The serrano -white junction is well differentiated. Scattered hypoattenuating areas are seen within the white mat ter. Cerebellum: Unremarkable. Mass effect: No evidence of midline shift. Intracranial vasculature: Atherosclerotic calcifications of the intracranial vessels. Soft tissues: Normal. Calvarium/osseous structures: No depressed skull fracture. Paranasal sinuses and mastoid air cells: Mild scattered paranasal sinus disease. Visualized orbits: Orbital contents are intact. IMPRESSION: 1. No acute intracranial process. 2. Nonspecific white matter changes, likely secondary to chronic small vessel ischemic disease.
--- NOTE | 2022-08-27 12:44 | XR ---
EXAMINATION TYPE: XR chest 2V DATE OF EXAM: 08/27/2022 COMPARISON: None INDICATION: Altered mental status generalized weakness TECHNIQUE: Frontal and lateral views of the chest are obtained. FINDINGS: The heart size is normal. The pulmonary vasculature is normal. Maybe a mild left suprahilar infiltrate particularly for atelectasis and pneumonia.. IMPRESSION: 1. Mild left upper lobe infiltrate. Correlate for atelectasis or pneumonia
--- NOTE | 2022-08-27 13:01 | CT ---
EXAMINATION TYPE: CT angio head neck CT DLP: 416.5 mGycm, Automated exposure control for dose reduction was used. DATE OF EXAM: 08/27/2022 12:42 PM COMPARISON: Same day CT head.. CLINICAL INDICATION:Male, 66 years old with history of AMS, neuro deficits; PHH, ams TECHNIQUE: Axially acquired helical CT angiogram of the head and neck was obtained with contrast. Axi al images are supplemented with 3D reconstructions which [facility] NASCET criteria used. Contrast used:65 mL of Isovue 370 with IV Contrast, Oral contrast used: None. FINDINGS: CTA HEAD: * Occlusion of the right internal carotid artery with reconstitution at the right MCA likely from fl ow from the anterior cerebral arteries and anterior to indicating artery. * Soft plaque of the petrous portion of the left internal carotid artery with at least 30% stenosis. * The visualized portions of the middle cerebral arteries, anterior cerebral arteries, and posterior cerebral arteries are patent. * The basilar and vertebral arteries are patent. * No evidence of acute intracranial hemorrhage, mass effect, or midline shift. The ventricles, sulci , and cisterns are unremarkable. CTA NECK: Right Carotid System: There is occlusion of the right internal carotid artery extending from its just past its origin appro ximately 3 mm past the bifurcation to the [place]. Reconstitution in the [place] li brian from the anterior cerebral arteries and anterior technique arteries. Left Carotid System: The common carotid artery and external carotid artery are patent. The carotid bifurcation demonstrate s no evidence of hemodynamically significant stenosis. The remaining portions of the internal carotid artery demonstrate normal size without significant narrowing. Vertebral arteries are patent without evidence hemodynamically significant stenosis. There is a three-vessel aortic arch. The origins of the great vessels are patent. No evidence of hemo dynamically significant stenosis. Findings communicated to Dr. Willis Mustafa MD on 08/27/2022 12:[address] Josse Welsh. IMPRESSION: 1. Right internal carotid artery occlusion extending from its origin into the [place]. Retr ograde flow to the right MCA is felt to be through the anterior communicating and cerebral arteries 2. No significant stenosis at the left carotid bifurcation. Mild stenosis of the petrous portion of the left internal carotid artery of at least 30% secondary to noncalcified plaque. 3. Vertebral arteries are patent..
[2022-08-27] MEDS ORDERED: TICAGRELOR 90 MG TAB PO STA (13:24)
[2022-08-27] MEDS ORDERED: ASPIRIN 325 MG TAB PO STA (13:24)
[2022-08-27] MEDS ORDERED: AZITHROMYCIN 500 MG in SODIUM CHLORIDE 0.9% 250 ML IVPB STA (13:27)
[2022-08-27 13:46] VITALS: BP 117/75; PULSE 77
== END 2022-08-27 14:55 | disposition other institution (70) ==
LOC: EC 10:35
DX: U07.1 COVID-19 (principal); J12.82 Pneumonia due to coronavirus disease 2019; I65.21 Occlusion and stenosis of right carotid artery; R41.0 Disorientation, unspecified; Z87.891 Personal history of nicotine dependence; E11.9 Type 2 diabetes mellitus without complications; Z88.1 Allergy status to other antibiotic agents; Z88.0 Allergy status to penicillin; Z91.018 Allergy to other foods; Z91.048 Other nonmedicinal substance allergy status; Z88.8 Allergy status to other drugs, medicaments and biological substances; Z79.84 Long term (current) use of oral hypoglycemic drugs
CPT/HCPCS: 36415; 93005; 80053; 82140; 83605; 84484; 85025; 85610; 85730; 87040; 87635; 71046; 70496; 70450; 70498; 99291; 96365; 96368; 96361; J0456; J0696; Q9967

== ENCOUNTER → 2025-05-18 | Outpatient (CLI) | payer MEDICARE ==
--- NOTE | 2025-05-18 10:09 | US ---
EXAMINATION TYPE: US Aorta Screening DATE OF EXAM: 05/18/2025 COMPARISON: NONE CLINICAL INDICATION: Male, 69 years old with history of Z13.6 ENCOUNTER FOR SCREENING FOR CARDIOVASCU LAR D; No hx of smoking, no family hx of AAA TECHNIQUE: Multiple sonographic images of the abdominal aorta are obtained with grayscale and color D oppler imaging. FINDINGS: EXAM MEASUREMENTS: Abdominal Aorta: Proximal: 1.4x1.8cm Mid: 1.5x1.7cm Distal: 1.3x2.3cm Bifurcation: Right Iliac: 0.9x1.4cm Left Iliac: 1.0x1.3cm RESTAURANT CASHIER NOTES: Slightly limited visualization due to overlying gas IMPRESSION: No evidence for aortic aneurysm. No further workup recommended for negative screening aortic aneurysm ultrasound per Society of Vascular Surgery Recommendations. [facility], , 05/18/2025 10:07 AM
== END | disposition home or self-care (01) ==
LOC: RADUSWWP 09:21
PROVIDERS: ATTEND Student in an Organized Health Care Education/Training Program
DX: Z13.6 Encounter for screening for cardiovascular disorders (principal)
CPT/HCPCS: 76706